=== PATIENT | male | born 2000 | race American Indian/Alaskan Native ===

== ENCOUNTER 2019-06-30 21:31 | Observation (INO) | payer MEDICAID, OTHER ==
--- NOTE | 2019-06-30 22:05 | Emergency Department Report ---
Blank Doc - Documentation Documentation: 18-year-old male that presents wth chest pain and SOB. This initial assessment/diagnostic orders/clinical plan/treatment(s) is/are subject to change based on patient's health status, clinical progression and re- assessment by fellow clinical providers in the ED. Further treatment and workup at subsequent clinical providers discretion. Patient/guardians urged not to elope from the ED as their condition may be serious if not clinically assessed and managed. Initial orders include: 1- Patient sent to [facility] for further evaluation and treatment 2- EKG 3- CXR
--- NOTE | 2019-06-30 22:47 | Emergency Department Report ---
ED Chest Pain HPI - General Chief Complaint: Chest Pain Stated Complaint: CHEST PAIN, COUGH, & LIGHT HEADED Time Seen by Provider: 06/30/19 22:04 Source: patient Mode of arrival: Ambulatory Limitations: No Limitations - History of Present Illness Initial Comments: Patient is 18 years old male with no significant past medical history. Patient presented to the ER complaining of substernal chest pain, tightness in nature associated with shortness of breath. Patient stated the pain started last night. 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 Patient denied any fever, chills or cough. Patient de nied any other symptoms. MD Complaint: chest pain -: Last night Onset: during rest Pain Location: substernal Pain Radiation: none Severity: moderate Severity scale (0 -10): 4 Quality: tightness Consistency: intermittent - Related Data Previous Rx's Medication Instructions Recorded Last Taken Type Amoxicillin [Amoxicillin TAB] 875 mg PO BID #20 tablet 04/18/14 Unknown Rx Brompheniramine/Pseudoephed/Dm 10 ml PO Q6H PRN #118 ml 04/18/14 Unknown Rx [Ttdvjdahuu-Kwfefsongza-Tg Syr] Fluticasone [Flonase] 1 spray NS QDAY #1 bottle 04/18/14 Unknown Rx Loratadine/Pseudoephedrine 1 tab PO DAILY #30 tablet 04/18/14 Unknown Rx [Claritin-D 24Hr] Nystatin/Lidocaine/Diphenhyd 5 ml MM Q6H PRN #237 ml 04/18/14 Unknown Rx [First-Bxn Mouthwash] Allergies Allergy/AdvReac Type Severity Reaction Status Date / Time No Known Allergies Allergy Verified 04/18/14 17:45 Heart Score - HEART Score History: Slightly suspicious EKG: Non-specific Age: < 45 Risk factors: No known risk factors Troponin: < normal limit HEART Score: 1 - Critical Actions Critical Actions: 0-3 pts:0.9-1.7%risk of adverse cardiac event.Candidate for discharge ED Review of Systems ROS: Stated complaint: CHEST PAIN, COUGH, & LIGHT HEADED Other details as noted in HPI Comment: All other systems reviewed and negative Constitutional: denies: chills, fever Respiratory: shortness of breath, SOB with exertion. denies: cough, SOB at rest Cardiovascular: chest pain. denies: palpitations Gastrointestinal: denies: abdominal pain, nausea, vomiting Musculoskeletal: denies: back pain Neurological: denies: headache, weakness, numbness, paresthesias, confusion ED Past Medical Hx - Past Medical History Previous Medical History?: Yes Hx Asthma: Yes - Surgical History Past Surgical History?: No - Social History Smoking Status: Current Every Day Smoker Substance Use Type: None - Medications Home Medications: Home Medications Medication Instructions Recorded Confirmed Last Taken Type Amoxicillin [Amoxicillin TAB] 875 mg PO BID #20 tablet 04/18/14 Unknown Rx Brompheniramine/Pseudoephed/Dm 10 ml PO Q6H PRN #118 ml 04/18/14 Unknown Rx [Wrjmfammkk-Pcfgzaowhwl-Ep Syr] Fluticasone [Flonase] 1 spray NS QDAY #1 bottle 04/18/14 Unknown Rx Loratadine/Pseudoephedrine 1 tab PO DAILY #30 tablet 04/18/14 Unknown Rx [Claritin-D 24Hr] Nystatin/Lidocaine/Diphenhyd 5 ml MM Q6H PRN #237 ml 04/18/14 Unknown Rx [First-Bxn Mouthwash] ED Physical Exam - General Limitations: No Limitations General appearance: alert, in no apparent distress - Head Head exam: Present: atraumatic, normocephalic, normal inspection - Eye Eye exam: Present: normal appearance, PERRL - ENT ENT exam: Present: normal exam, normal orophraynx, mucous membranes moist - Neck Neck exam: Present: normal inspection, full ROM. Absent: tenderness, meningismus - Respiratory Respiratory exam: Present: normal lung sounds bilaterally - Cardiovascular Cardiovascular Exam: Present: regular rate, normal rhythm, normal heart sounds. Absent: irregular rhythm, systolic murmur, diastolic murmur, rubs, gallop - GI/Abdominal GI/Abdominal exam: Present: soft, normal bowel sounds. Absent: distended, tenderness, guarding, rebound, rigid, organomegaly, mass, bruit, pulsatile mass, hernia - Extremities Exam Extremities exam: Present: normal inspection, full ROM, normal capillary refill. Absent: tenderness, pedal edema, joint swelling, calf tenderness - Back Exam Back exam: Present: normal inspection, full ROM. Absent: CVA tenderness (R), CVA tenderness (L), muscle spasm - Neurological Exam Neurological exam: Present: alert, oriented X3, CN II-XII intact, normal gait. Absent: motor sensory deficit - Psychiatric Psychiatric exam: Present: normal mood - Skin Skin exam: Present: warm, intact, normal color ED Course Vital Signs 06/30/19 06/30/19 06/30/19 21:44 22:36 23:17 Temperature 98.5 F Pulse Rate 70 74 74 Respiratory 20 21 Rate Blood Pressure 151/75 Blood Pressure 135/76 [Left] O2 Sat by Pulse 95 100 Oximetry ED Medical Decision Making - Lab Data Result diagrams: 06/30/19 22:27 06/30/19 22:27 - EKG Data -: EKG Interpreted by Me EKG shows normal: sinus rhythm Rate: normal - EKG Data 06/30/19 22:46 Left bundle branch block. - Radiology Data Radiology results: report reviewed - Medical Decision Making Patient is 18 years old male with no significant past medical history. Patient presented to the ER complaining of substernal chest pain, tightness in nature associated with shortness of breath. Patient stated the pain started last night. 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 Patient denied any fever, chills or cough. Patient denied any other symptoms. EKG showed a left bundle branch block. Labs reviewed and is unremarkable including a negative troponin and d-dimer. Chest x-ray is unremarkable. Patient continued to have chest pain in the ER, I discussed the patient with Dr. Delcid, he advised to admit the patient to the hospital for further work-up. I discussed the patient with Dr. Colon, he agreed to admit the patient to medical service for further management. Critical Care Time: Yes Critical care time in (mins) excluding proc time.: 30 Critical care attestation.: If time is entered above; I have spent that time in minutes in the direct care of this critically ill patient, excluding procedure time. ED Disposition Clinical Impression: Chest pain, Left bundle branch block Disposition: OP ADMIT IP TO THIS HOSP Is pt being admited?: Yes Condition: Stable Instructions: Chest Pain (ED)
[2019-06-30 22:54] LABS: Hematocrit 40.9 % (35.5-45.6); Hemoglobin 14.4 gm/dl (11.8-15.2); Mean Corpuscular HGB Conc 35 % (32-34); Mean Corpuscular Volume 84 fl (84-94); Platelet Count 273 K/mm3 (140-440); Red Blood Count 4.88 M/mm3 (3.65-5.03); Red Cell Distribution Width 13.5 % (13.2-15.2)
[2019-06-30 23:11] LABS: INR 1.11 (0.87-1.13)
[2019-06-30 23:12] LABS: Partial Thromboplastin Time 31.5 Sec. (24.2-36.6)
[2019-06-30 23:14] LABS: Alanine Aminotransferase 16 units/L (7-56); Albumin 4.7 g/dL (3.9-5); BUN/Creatinine Ratio 10; Blood Urea Nitrogen 10 mg/dL (9-20); Calcium 9.9 mg/dL (8.4-10.2); Hemolysis Index 7
--- NOTE | 2019-06-30 23:21 | XRay Report ---
CHEST 2 VIEWS INDICATION / CLINICAL INFORMATION: cp. COMPARISON: None available. FINDINGS: SUPPORT DEVICES: None. HEART / MEDIASTINUM: No significant abnormality. LUNGS / PLEURA: No significant pulmonary or pleural abnormality. .No pneumothorax. ADDITIONAL FINDINGS: No significant additional findings. IMPRESSION: 1. No acute findings. Signer Name: Nirav Barry MD Signed: 06/30/2019 11:16 PM Workstation Name: [id number]
[2019-06-30 23:45] LABS: Amphetamine Screen,Urine PRESUMPTIVE NEGATIVE; Benzodiazepines Screen,Urine PRESUMPTIVE NEGATIVE; Cocaine Screen,Urine PRESUMPTIVE NEGATIVE; Methadone Screen,Urine PRESUMPTIVE NEGATIVE; Opiate Screen,Urine PRESUMPTIVE NEGATIVE
[2019-06-30 23:58] LABS: Cannabinoid Screen,Urine PRESUMPTIVE POSITIVE
[2019-07-01 01:27] LABS: Basophils % (Manual) 0 % (0.0-1.8); Platelet Estimate Cons; Total Cells Counted 100
[2019-07-01] MEDS ORDERED: MORPHINE 2 MG/1 ML INJ IV PRN (02:41)
[2019-07-01] MEDS ORDERED: ONDANSETRON 4 MG/2 ML INJ IV PRN (02:41)
[2019-07-01] MEDS ORDERED: NITROGLYCERIN 0.4 MG TAB SUBL SL PRN (02:41)
[2019-07-01] MEDS ORDERED: ACETAMINOPHEN 325 MG TAB PO PRN (02:41)
[2019-07-01] MEDS ORDERED: hydrALAZINE 20 MG/1 ML INJ IV PRN (02:41)
--- NOTE | 2019-07-01 02:59 | History and Physical Report ---
History of Present Illness Date of examination: 07/01/19 Date of admission: 07/01/19 00:09 Chief complaint: Chest Pain History of present illness: 18-year-old -[place] male with no significant past medical history presenting to the emergency room today complaining of chest pain. Chest pain is said to be substernal and felt like tightness with associated shortness of breath. Pain was said to have started overnight while he was doing some cleaning . He denies any fever or chills, no nausea vomiting, no headache or dizziness. There is no radiation of the chest pain and no no relieving or exacerbating factors. Patient denies having this type of symptoms in the past. Denies any family history of heart disease. Upon arrival in the emergency room his work-up was significant for left bundle branch block on the EKG. All other work-up were essentially within normal limits. Patient's condition was discussed with the transportation department head on-call by the ER physician and recommendation was to have patient admitted for further work-up including echocardiogram. Past History Past Medical History: other (H/O Asthma) Past Surgical History: No surgical history Social history: no significant social history Family history: no significant family history Medications and Allergies Allergies Allergy/AdvReac Type Severity Reaction Status Date / Time No Known Allergies Allergy Verified 04/18/14 17:45 Home Medications Medication Instructions Recorded Confirmed Last Taken Type Amoxicillin [Amoxicillin TAB] 875 mg PO BID #20 tablet 04/18/14 Unknown Rx Brompheniramine/Pseudoephed/Dm 10 ml PO Q6H PRN #118 ml 04/18/14 Unknown Rx [Vliopeynic-Dxkkudniwol-Nh Syr] Fluticasone [Flonase] 1 spray NS QDAY #1 bottle 04/18/14 Unknown Rx Loratadine/Pseudoephedrine 1 tab PO DAILY #30 tablet 04/18/14 Unknown Rx [Claritin-D 24Hr] Nystatin/Lidocaine/Diphenhyd 5 ml MM Q6H PRN #237 ml 04/18/14 Unknown Rx [First-Bxn Mouthwash] Active Meds: Active Medications Acetaminophen (Tylenol) 650 mg PO Q4H PRN PRN Reason: Pain MILD(1-3)/Fever >100.5/SELBY Aspirin (Ecotrin) 325 mg PO QDAY AUBREY Hydralazine HCl (Apresoline) 10 mg IV Q6HR PRN PRN Reason: FOR SBP > target Morphine Sulfate (Morphine) 2 mg IV Q4H PRN PRN Reason: Pain, Moderate (4-6) Nitroglycerin (Nitrostat) 0.4 mg SL Q5M PRN PRN Reason: Chest Pain Ondansetron HCl (Zofran) 4 mg IV Q8H PRN PRN Reason: Nausea And Vomiting Sodium Chloride (Sodium Chloride Flush Syringe 10 Ml) 10 ml IV PRN PRN PRN Reason: LINE FLUSH Sodium Chloride (Sodium Chloride Flush Syringe 10 Ml) 10 ml IV BID AUBREY Sodium Chloride (Sodium Chloride Flush Syringe 10 Ml) 10 ml IV PRN PRN PRN Reason: LINE FLUSH Review of Systems Constitutional: no fever, no chills Cardiovascular: chest pain, no palpitations Respiratory: no cough, no shortness of breath Gastrointestinal: no nausea, no vomiting, no diarrhea Genitourinary Male: no dysuria, no hematuria Musculoskeletal: no neck pain, no low back pain Integumentary: no rash, no pruritis Neurological: no headaches, no change in mentation Exam - Constitutional Vitals: Temp Pulse Resp BP Pulse Ox 97.8 F 57 L 18 145/72 96 07/01/19 01:12 07/01/19 01:12 07/01/19 01:12 07/01/19 01:12 07/01/19 01:12 General appearance: Present: no acute distress, well-nourished - EENT Eyes: Present: PERRL, EOM intact ENT: hearing intact, clear oral mucosa, dentition normal - Neck Neck: Present: supple, normal ROM - Respiratory Respiratory effort: normal Respiratory: bilateral: CTA - Cardiovascular Rhythm: regular Heart Sounds: Present: S1 & S2 - Extremities Extremities: no ischemia, pulses intact, pulses symmetrical, No edema, Full ROM Peripheral Pulses: within normal limits - Abdominal General gastrointestinal: Present: soft, non-tender, non-distended - Integumentary Integumentary: Present: clear, warm, dry - Musculoskeletal Musculoskeletal: strength equal bilaterally - Psychiatric Psychiatric: appropriate mood/affect, intact judgment & insight, cooperative - Neurologic Neurologic: CNII-XII intact, moves all extremities Results - Labs CBC & Chem 7: 06/30/19 22:27 06/30/19 22:27 Labs: Abnormal lab results 06/30/19 Range/Units 22:27 MCHC 35 H (32-34) % Seg Neuts % (Manual) 28.0 L (40.0-70.0) % Lymphocytes % (Manual) 55.0 H (13.4-35.0) % Monocytes % (Manual) 12.0 H (0.0-7.3) % Eosinophils % (Manual) 5.0 H (0.0-4.3) % Seg Neutrophils # Man 1.4 L (1.8-7.7) K/mm3 Assessment and Plan - Patient Problems (1) Chest pain Current Visit: Yes Status: Acute Plan to address problem: Patient admitted and placed on telemetry. Will monitor cardiac enzymes. Patient placed on daily aspirin. Patient will be scheduled for echocardiogram. We will await further recommendation from cardiology. (2) Left bundle branch block Current Visit: Yes Status: Acute Plan to address problem: Monitor EKG and will await recommendation from cardiology. Will monitor EKG. (3) DVT prophylaxis Current Visit: Yes Status: Acute Plan to address problem: Patient placed on subcutaneous heparin. (4) Full code status Current Visit: Yes Status: Acute
[2019-07-01] MEDS ORDERED: HEPARIN 5,000 UNIT/1 ML VIAL SUB-Q SCH (06:00)
[2019-07-01 06:55] LABS: BUN/Creatinine Ratio 12; Blood Urea Nitrogen 11 mg/dL (9-20); Calcium 9.8 mg/dL (8.4-10.2); Hemolysis Index 15
[2019-07-01 07:03] LABS: Hemoglobin 14.7 gm/dl (11.8-15.2); Mean Corpuscular HGB Conc 35 % (32-34); Mean Corpuscular Volume 84 fl (84-94); Platelet Count 283 K/mm3 (140-440); Red Cell Distribution Width 13.9 % (13.2-15.2)
[2019-07-01 08:25] LABS: Basophils % (Manual) 0 % (0.0-1.8); Platelet Estimate Consistent w Auto; RBC Morphology Normal; Total Cells Counted 100
[2019-07-01] MEDS ORDERED: REGADENOSON 0.4 MG/5 ML INJ IV ONE ×2 (10:07→10:08)
[2019-07-01 10:32] VITALS: BP 148/88
--- NOTE | 2019-07-01 11:06 | Consultation ---
<LESLY BALL - Last Filed: 07/01/19 14:28> History of Present Illness Consult date: 07/01/19 Requesting physician: JAZLYN DUPREE Consult reason: chest pain, other (?LBBB) History of present illness: Pt is a 18 y.o. AA male with a past medical hx of asthma and tobacco use. He is previously unknown to our practice. Pt presented with c/o squeezing sub-sternal CP and SOB x 1 day. He describes his CP and constant and non-radiating. 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 He was at work when he noticed the onset of CP. Upon exam, pt denies SOB, palpitations, headache, lightheadedness, and N/V. Trop negative x 2. ECG shows NSR with incomplete LBBB and LVH. CXR shows no acute findings. Past History Past Medical History: other (hx of asthma) Past Surgical History: No surgical history Social history: smoking (tobacco and marijuana) Family history: no significant family history Medications and Allergies Allergies Allergy/AdvReac Type Severity Reaction Status Date / Time No Known Allergies Allergy Verified 04/18/14 17:45 Home Medications Medication Instructions Recorded Confirmed Last Taken Type Aspirin EC [Ecotrin] 325 mg PO QDAY #30 tablet 07/01/19 Unknown Rx Active Meds: Active Medications Acetaminophen (Tylenol) 650 mg PO Q4H PRN PRN Reason: Pain MILD(1-3)/Fever >100.5/SELBY Aspirin (Ecotrin) 325 mg PO QDAY AUBREY Heparin Sodium (Porcine) (Heparin) 5,000 unit SUB-Q Q8HR AUBREY Hydralazine HCl (Apresoline) 10 mg IV Q6H PRN PRN Reason: FOR SBP > target Morphine Sulfate (Morphine) 2 mg IV Q4H PRN PRN Reason: Pain, Moderate (4-6) Nitroglycerin (Nitrostat) 0.4 mg SL Q5M PRN PRN Reason: Chest Pain Ondansetron HCl (Zofran) 4 mg IV Q8H PRN PRN Reason: Nausea And Vomiting Sodium Chloride (Sodium Chloride Flush Syringe 10 Ml) 10 ml IV BID AUBREY Sodium Chloride (Sodium Chloride Flush Syringe 10 Ml) 10 ml IV PRN PRN PRN Reason: LINE FLUSH Review of Systems Constitutional: no weight loss, no weight gain, no fever, no chills, no sweats, no fatigue Ears, nose, mouth and throat: no ear pain, no nose pain, no nasal congestion, no mouth pain, no dysphagia Cardiovascular: chest pain, no orthopnea, no palpitations, no rapid/irregular heart beat, no edema, no syncope, no lightheadedness, no shortness of breath, no dyspnea on exertion Respiratory: no cough, no shortness of breath, no dyspnea on exertion, no wheezing Gastrointestinal: no abdominal pain, no nausea, no vomiting, no diarrhea, no constipation Genitourinary Male: no dysuria, no flank pain Musculoskeletal: no neck stiffness, no neck pain, no muscle weakness, no muscle cramps Integumentary: no rash, no wounds Neurological: no head injury, no paralysis, no weakness, no parathesias, no numbness, no tingling, no seizures, no syncope, no vertigo, no headaches Endocrine: no cold intolerance, no heat intolerance Hematologic/Lymphatic: no easy bruising, no easy bleeding Allergic/Immunologic: no urticaria, no wheezing, no anaphylaxis Physical Examination Last Vital Signs Temp 97.9 F 07/01/19 03:30 Pulse 75 07/01/19 03:30 Resp 16 07/01/19 03:30 BP 148/88 07/01/19 10:19 Pulse Ox 97 07/01/19 03:30 General appearance: no acute distress HEENT: Positive: EOMI, Normocephaly, Mucus Membranes Moist Neck: Positive: neck supple, trachea midline Cardiac: Positive: Regular Rate, S1/S2 Lungs: Positive: clear to auscultation, No Wheeze, Rales, Rhonchi Neuro: Positive: Grossly Intact, Motor Function Intact, Coordination Normal, Sensory Function Intact Abdomen: Positive: Soft, Active Bowel Sounds. Negative: Tender Skin: Negative: Rash, Wound Musculoskeletal: No Pain, Normal Range of Motion Extremities: Present: upper extr. pulses, lower extr. pulses. Absent: edema Results 07/01/19 06:15 07/01/19 06:15 Cardiac Enzymes 06/30/19 Range/Units 22:27 AST 21 (5-40) units/L Coagulation 06/30/19 Range/Units 22:27 PT 14.4 (12.2-14.9) Sec. INR 1.11 (0.87-1.13) APTT 31.5 (24.2-36.6) Sec. CBC 06/30/19 07/01/19 Range/Units 22:27 06:15 WBC 5.0 4.3 L (4.5-11.0) K/mm3 RBC 4.88 5.00 (3.65-5.03) M/mm3 Hgb 14.4 14.7 (11.8-15.2) gm/dl Hct 40.9 42.0 (35.5-45.6) % Plt Count 273 283 (140-440) K/mm3 Comprehensive Metabolic Panel 06/30/19 07/01/19 Range/Units 22:27 06:15 Sodium 140 140 (137-145) mmol/L Potassium 4.4 4.0 (3.6-5.0) mmol/L Chloride 100.5 102.0 (98-107) mmol/L Carbon Dioxide 26 25 (22-30) mmol/L BUN 10 11 (9-20) mg/dL Creatinine 1.0 0.9 (0.8-1.5) mg/dL Glucose 89 84 (75-100) mg/dL Calcium 9.9 9.8 (8.4-10.2) mg/dL AST 21 (5-40) units/L ALT 16 (7-56) units/L Alkaline Phosphatase 77 (35-129) units/L Total Protein 7.3 (6.3-8.2) g/dL Albumin 4.7 (3.9-5) g/dL - Imaging and Cardiology Echo: report reviewed (EF 55-60%; no additional significant findings) EKG: report reviewed, image reviewed - EKG Interpretation EKG: no acute changes EKG interpretations - Telemetry EKG Rhythm: Vabz-Ksucntjur-Kchbq AV and intraventricular conduction: left bundle branch block Chamber hypertrophy or enlargement: left ventricular hypertro Additional Comments: WPW Assessment and Plan Cardiology was consulted for substernal squeezing CP and suspected LBBB on ECG. Cardiac CTA would have been preferred in the setting of ECG suspicious for WPW; however, given that camera is down, the decision was made to proceed with Lexiscan MPI stress test. Lexiscan MPI stress test demonstrates grossly normal post-stress LV systolic function with no significant evidence of myocardial ischemia or necrosis. Echo shows EF 55-60%; no additional significant findings. 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 Will plan for outpt EP eval. Currently stable cardiac status. F/u in our [place] office with Dr. Braswell - 07/13/2019 @ 10:30a F/u in our [place] office for EP consult with Dr. Mcmullen - 07/15/2019 @ 9:30a The patient has been seen in conjunction with Dr. Braswell, who agrees with the assessment and plan of care. 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
--- NOTE | 2019-07-01 11:08 | Treadmill Report ---
NUCLEAR CARDIAC IMAGING REPORT INDICATION FOR PROCEDURE: Chest pain. Informed consent was obtained. Vasodilator stress was achieved with the intravenous administration of 0.4 mg of Lexiscan per protocol. Rest and stress nuclear cardiac imaging was performed following intravenous administration of technetium-99m Myoview. Gated SPECT imaging demonstrates a post-stress left ventricular ejection fraction of 51% with normal wall motion. Myocardial perfusion imaging demonstrates no significant cavity change between stress and rest. No significant stress induced perfusion defects are seen. Nuclear cardiac imaging demonstrates grossly normal post-stress left ventricular systolic function with no significant evidence of myocardial ischemia or necrosis. JOB# [id number] DEEPTHI/LUIS CARLOS
--- NOTE | 2019-07-01 12:01 | Discharge Summary ---
Providers - Providers Date of Admission: 07/01/19 00:09 Attending physician: PATTY MARTINEZ MD 07/01/19 Consult to Cardiac Rehabilitation [CONS] Routine Reason For Exam: Phase I 07/01/19 00:02 Consult to Physician [CONS] Stat Comment: Dr. Estrada spoke with Dr. Cm @ 0000 Consulting Provider: LANETTE CM Physician Instructions: Reason For Exam: chest pain with LBBB Primary care physician: RECREATIONAL AIDE Hospitalization Reason for admission: Chest pain Condition: Stable Hospital course: 18-year-old -[place] male with no significant past medical history presenting to the emergency room today complaining of chest pain. Chest pain is said to be substernal and felt like tightness with associated shortness of breath. Pain was said to have started overnight while he was doing some cleaning . He denies any fever or chills, no nausea vomiting, no headache or dizziness. There is no radiation of the chest pain and no no relieving or exacerbating factors. Patient denies having this type of symptoms in the past. Denies any family history of heart disease. Upon arrival in the emergency room his work-up was significant for left bundle branch block on the EKG. All other work-up were essentially within normal limits. Patient's condition was discussed with the sand polisher on-call by the ER physician and recommendation was to have patient admitted for further work-up including echocardiogram. 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 An EP was recommended as outpatient to further evaluate the patient there was no evidence of palpation or syncope reported by the patient. 18 yo male for whom card consult requested for eval cp described as midsternal squeezing in quality assoc with sob ecg: sinus emilia 55 bpm with short pr, wide qrs, delta wave consistent with pre- excitation pattern with assoc stt repol abn echo unremarkable considered cardiac cta for further eval of cp but was told ct scanner was non operational. vasodilator stress test ordered rec ep consult as outpt. 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 GENERAL: The patient appears normally developed, Vital signs as documented. HEAD: No signs of head trauma. EYES: Pupils are equal. Extraocular motions intact. EARS: Hearing grossly intact. MOUTH: Oropharynx is normal. NECK: No adenopathy, no JVD. CHEST: Chest with clear breath sounds bilaterally. No wheezes, rales, or rhonchi. CARDIAC: Regular rate and rhythm. S1 and S2, without murmurs, gallops, or rubs. VASCULAR: No Edema. Peripheral pulses normal and equal in all extremities. ABDOMEN: Soft, non tender and non distended. No rebound or guarding, and no masses palpated. Bowel Sounds normal. MUSCULOSKELETAL: Good range of motion of all major joints. Extremities without clubbing, cyanosis or edema. NEUROLOGIC EXAM: Alert and oriented x 3 No focal sensory or strength deficits. Speech normal. Follows commands. PSYCHIATRIC: Mood normal. SKIN: detial exam as documented in skin assessment - Constitutional Vitals: Temp Pulse Resp BP Pulse Ox 97.9 F 75 16 148/88 97 07/01/19 03:30 07/01/19 03:30 07/01/19 03:30 07/01/19 10:19 07/01/19 03:30 Plan Activity: advance as tolerated, fall precautions Diet: low fat Special Instructions: record daily BP diary Follow up with: SOPHIA BRASWELL MD [Staff Physician] - 7 Days (F/u in our [place] office with Dr. Braswell - 07/13/2019 @ 10:30a) CRISS EDGE MD [Staff Physician] - 7 Days (F/u in our [place] office for EP consult with Dr. Edge - 07/15/2019 @ 9:30a) PRIMARY CAREMD [Primary Care Provider] - 3-5 Days Forms: Work/School Release Form Prescriptions: Aspirin EC [Ecotrin] 325 mg PO QDAY #30 tablet
--- NOTE | 2019-07-01 16:32 | Event Note ---
Date: 07/01/19 18 yo male for whom card consult requested for eval cp described as midsternal squeezing in quality assoc with sob ecg: sinus emilia 55 bpm with short pr, wide qrs, delta wave consistent with pre- excitation pattern with assoc stt repol abn echo unremarkable considered cardiac cta for further eval of cp but was told ct scanner was non operational. vasodilator stress test ordered rec ep consult as outpt. pt has had no palp or syncope
[2019-07-02] MEDS ORDERED: ASPIRIN EC 325 MG TAB PO SCH (10:00)
== END 2019-07-01 14:07 | disposition home or self-care (01) ==
LOC: ED 21:31 → 4A 07-01 00:09
PROVIDERS: ADMIT Internal Medicine Geriatric Medicine; ATTEND Internal Medicine
DX: I44.7 Left bundle-branch block, unspecified (principal); R07.89 Other chest pain; J45.909 Unspecified asthma, uncomplicated; F17.200 Nicotine dependence, unspecified, uncomplicated; Z71.6 Tobacco abuse counseling; Z79.51 Long term (current) use of inhaled steroids; Z79.899 Other long term (current) drug therapy
CPT/HCPCS: 36415; 71046; 78452; 80048; 80053; 80307; 83880; 84484; 85007; 85025; 85379; 85610; 85730; 93005; 93010; 93017; 93306; 99291; 99406; A9502; G0378; J2785